=== PATIENT | male | born 1950 | race Caucasian/White ===

== ENCOUNTER 2017-01-12 08:02 | Day surgery (SDC) | payer MEDICARE ==
[2015-05-26 08:34] VITALS: BMI 22.8
--- NOTE | 2017-01-12 10:16 | CP.SDSHP ---
Same Day Surgery H & P - History Proposed Procedure: colonoscopy Pre-Op Diagnosis: rectal pain - Previous Medical/Surgical History Comments: BPH - Allergies Allergies: Allergies No Known Allergies Allergy (Verified 02/09/16 13:10) - Physical Exam Vital Signs: Vital Signs 01/12/17 08:29 Temperature 97 F L Pulse Rate 72 Respiratory 17 Rate Blood Pressure 141/65 O2 Sat by Pulse 98 Oximetry Mental Status: Alert & Oriented x3 Neuro: WNL Heart: WNL Lungs: WNL GI: WNL - {Optional Preform as Required} Abdomen: WNL - Impression Impression: rectal pain Pt. Evaluated Today:Candidate for Anesthesia & Procedure: Yes - Date & Time Date: 01/12/17 Time: 10:15 Short Stay Discharge - Short Stay Discharge Admitting Diagnosis/Reason for Visit: COLONIC POLYPS Disposition: HOME/ ROUTINE
[2017-01-12] MEDS ORDERED: Propofol 10 mg/ml Inj (20 ML) ONE (10:20)
[2017-01-12] MEDS ORDERED: Lactated Ringer's 1,000 ML IV ONE ×2 (10:20)
[2017-01-12 11:20] VITALS: TEMP 98.2
[2017-01-12 11:23] VITALS: O2SAT 100
[2017-01-12 12:41] VITALS: BP 135/67; PULSE 58; RESP 13
== END 2017-01-12 12:30 | disposition home or self-care (01) ==
LOC: C.ENDO 08:02
PROVIDERS: ATTEND Internal Medicine Gastroenterology
DX: K62.1 Rectal polyp (principal); K64.8 Other hemorrhoids; D12.0 Benign neoplasm of cecum
CPT/HCPCS: 45388; 88305; J2704; J7120

== ENCOUNTER 2018-02-21 10:06 | Emergency (ER) | payer MEDICARE ==
[2018-02-21 10:06] VITALS: BMI 23.6
--- NOTE | 2018-02-21 12:27 | C.PDOC ---
History Of Present Illness Patient complains of left cramping calf pain for one month. Pain is intermittent but has been more persistent the past few days. Patient does have history of limited movement secondary to chronic back pain and recent epidural last month. Denies any chest pain, SOB, numbness or weakness Time Seen by Provider: 02/21/18 11:06 Chief Complaint (Nursing): Lower Extremity Problem/Injury History Per: Patient History/Exam Limitations: no limitations Onset/Duration Of Symptoms: Days, Intermittent Episodes, Persistent, Other (one month ) Current Symptoms Are (Timing): Still Present Additional History Per: Patient Past Medical History Reviewed: Historical Data, Nursing Documentation, Vital Signs Vital Signs: Last Vital Signs Temp 98.7 F 02/21/18 13:15 Pulse 58 L 02/21/18 13:15 Resp 18 02/21/18 13:15 BP 155/79 H 02/21/18 13:15 Pulse Ox 98 02/21/18 16:30 - Medical History PMH: Arthritis, Back Problems, Benign Prostatic Hyperplasia, HTN Denies: Chronic Kidney Disease Surgical History: Back Surgery - [facility] Procedures ANESTH INJECT SYMP NERVE (10/30/13) ANESTH INJECT-SPIN CANAL (09/30/13) ENDOSC POLYPECTOMY OF LG INTEST (07/18/13) INJECT STEROID (10/30/13) LUMBOSAC SPINE X-RAY NEC (09/30/13) PERIPH NERVE DESTRUCTION (03/27/14) SPINAL CANAL INJECT NEC (09/30/13) SYMPATH NERVE INJECT NEC (10/30/13) Family History: States: Unknown Family Hx - Social History Hx Tobacco Use: No Hx Alcohol Use: No Hx Substance Use: No - Immunization History Hx Tetanus Toxoid Vaccination: Yes Hx Influenza Vaccination: Yes Hx Pneumococcal Vaccination: Yes Review Of Systems Cardiovascular: Negative for: Chest Pain Respiratory: Negative for: Shortness of Breath Musculoskeletal: Positive for: Other (left calf pain ) Neurological: Negative for: Weakness, Numbness Physical Exam - Physical Exam Appears: Non-toxic, No Acute Distress Skin: Normal Color, Warm, Dry Head: Atraumatic, Normacephalic Eye(s): bilateral: Normal Inspection Neck: Normal ROM Chest: Symmetrical Cardiovascular: Rhythm Regular, No Murmur Respiratory: Normal Breath Sounds, No Accessory Muscle Use, No Wheezing Extremity: Normal ROM, Calf Tenderness (left, on palpation ), Capillary Refill ( less than 2 seconds ), No Swelling, No Other (palpable cord ) Pulses: Left Dorsalis Pedis: Normal, Right Dorsalis Pedis: Normal Neurological/Psych: Oriented x3, Normal Speech ED Course And Treatment O2 Sat by Pulse Oximetry: 98 (on RA) Pulse Ox Interpretation: Normal Medical Decision Making Medical Decision Making: Impression: Left calf pain Plan: * Left doppler Progress: Doppler study shows acute DVT of left peroneal vein 1227 Spoke with case management Jami who will assist in coordinating Eliquis Medication starter pack obtained from pharmacy 1330 Dr Radha Lala was informed of patient's findings and is in ED to speak with patient. Patient agrees with plan for discharge and treatment of DVT with Eliquis. Disposition Counseled Patient/Family Regarding: Studies Performed, Diagnosis, Need For Followup, Rx Given - Disposition Referrals: Deedee Lala MD [Staff Provider] - Disposition: HOME/ ROUTINE Disposition Time: 13:35 Condition: STABLE Additional Instructions: Your doppler study shows you have DVT of left lower leg It is important that you follow up with your primary physician and take medication as prescribed Prescriptions: Apixaban [Eliquis] 2 tab PO BID 30 Days #74 tab Instructions: Deep Vein Thrombosis (Blood Clots in the Legs) (DC) Forms: [employer] (Kiswahili) - POA Present On Arrival: Deep Vein Thrombosis / PE - Clinical Impression Clinical Impression: Deep venous thrombosis of lower extremity - PA / SAMPLE CASE PORTER / Resident Statement MD/DO has reviewed & agrees with the documentation as recorded. (Yolanda Lala) - Scribe Statement The provider has reviewed the documentation as recorded by the Scribe (Yolanda Lala) All medical record entries made by the Scribe were at my direction and personally dictated by me. I have reviewed the chart and agree that the record accurately reflects my personal performance of the history, physical exam, medical decision making, and the department course for this patient. I have also personally directed, reviewed, and agree with the discharge instructions and disposition.
[2018-02-21 13:16] VITALS: BP 155/79; PULSE 58; RESP 18; TEMP 98.7
[2018-02-21 13:34] VITALS: O2SAT 98
--- NOTE | 2018-02-21 15:42 | VASCLAB ---
Date of service: 02/21/2018 PROCEDURE: Lower Extremity Venous Duplex Exam. HISTORY: Pain to left calf. PRIORS: None. TECHNIQUE: Bilateral common femoral, femoral, popliteal and posterior tibial, peroneal and great saphenous veins were evaluated. Flow was assessed with color Doppler, compressibility, assessment of phasic flow and augmentation response. Report prepared by KARINE Lockwood FINDINGS: RIGHT: 1. Common Femoral Vein: 1.1. Compressibility - Fully compressible: Thrombus - None : Flow - Phasic: Augmentation -Normal: Reflux - None. 2. Femoral Vein: 2.1. Compressibility - Fully compressible: Thrombus - None : Flow - Phasic: Augmentation -Normal: Reflux - None. 3. Popliteal Vein: 3.1. Compressibility - Fully compressible: Thrombus - None : Flow - Phasic: Augmentation -Normal: Reflux - None. 4. Posterior Tibial Vein: 4.1. Compressibility - Fully compressible: Thrombus - None: Flow - Phasic: Augmentation -Normal: Reflux - None. 5. Peroneal Vein: 5.1. Compressibility - Fully compressible: Thrombus - None: Flow - Phasic: Augmentation -Normal: Reflux - None. 6. Great Saphenous Vein: 6.1. Compressibility - Fully compressible: Thrombus - None: Flow - Phasic: Augmentation - Normal: Reflux - Mild. LEFT: 1. Common Femoral Vein: 1.1. Compressibility - Fully compressible: Thrombus - None: Flow - Phasic: Augmentation -Normal: Reflux - None. 2. Femoral Vein: 2.1. Compressibility - Fully compressible: Thrombus - None: Flow - Phasic: Augmentation -Normal: Reflux - None. 3. Popliteal Vein: 3.1. Compressibility - Fully compressible: Thrombus - None : Flow - Phasic: Augmentation -Normal: Reflux - None. 4. Posterior Tibial Vein: 4.1. Compressibility - Fully compressible: Thrombus - None: Flow - Phasic: Augmentation -Normal: Reflux - None. 5. Peroneal Vein: 5.1. Compressibility - Incompressible: Thrombus - Acute: Flow - Absent 6. Great Saphenous Vein: 6.1. Compressibility - Fully compressible: Thrombus - None: Flow - Phasic: Augmentation - Normal: Reflux - Mild. OTHER FINDINGS: Right: None significant. Left: None significant. IMPRESSION: Right: No evidence of deep or superficial vein thrombosis of the right lower extremity. Valvular incompetence noted of the great saphenous vein. Left: Acute deep vein thrombosis of the left peroneal veins. Valvular incompetence noted of the great saphenous vein.
== END 2018-02-21 13:35 | disposition home or self-care (01) ==
LOC: C.ER 10:06
DX: I82.492 Acute embolism and thrombosis of other specified deep vein of left lower extremity (principal)

== ENCOUNTER 2018-03-17 21:58 | Inpatient (IN) | payer MEDICARE ==
[2018-03-17 21:58] VITALS: BMI 23.6
[2018-03-17 22:39] LABS: EOS # 0.1 K/uL (0.0-0.7); EOS % 2.8 % (0.0-4.0); HEMOGLOBIN 7.4 g/dL (12.0-18.0); LYMPH # 1.1 K/uL (1.0-4.3); LYMPH % 22.7 % (20.0-40.0); MEAN CORPUSCULAR HEMOGLOBIN 22.8 pg (27.0-31.0); MEAN CORPUSCULAR HGB CONC 31.2 g/dL (33.0-37.0); MEAN PLATELET VOLUME 7.3 fL (7.2-11.7); MONO # 0.6 K/uL (0.0-0.8); NEUT # 2.8 K/uL (1.8-7.0); NEUT % 60.5 % (50.0-75.0); RBC 3.25 Mil/uL (4.40-5.90); RED CELL DISTRIBUTION WIDTH 19.5 % (11.5-14.5); WHITE BLOOD COUNT 4.6 K/uL (4.8-10.8)
[2018-03-17 22:49] LABS: INR 1.2; PROTHROMBIN TIME 13.1 SECONDS (9.7-12.2)
--- NOTE | 2018-03-17 22:58 | C.PDOC ---
History Of Present Illness 67 year old male, with history of HTN, presents to the emergency department with GI bleed, diffuse abdominal cramping and increasing progressive anemia. Patient had CT scan 2 days ago that showed focal soft tissue thickening at the level of the ileocecal valve. Was referred by Dr. Lala for further evaluation with colonoscopy. Denies any headache, chest pain, SOB, nausea, vomiting, or constipation. Patient Time Seen by Provider: 03/17/18 22:44 Chief Complaint (Nursing): GI Problem History Per: Patient History/Exam Limitations: no limitations Onset/Duration Of Symptoms: Days Current Symptoms Are (Timing): Still Present Past Medical History Reviewed: Historical Data, Nursing Documentation, Vital Signs Vital Signs: Last Vital Signs Temp 98.9 F 03/17/18 22:06 Pulse 86 03/17/18 22:06 Resp 18 03/17/18 22:06 BP 128/68 03/17/18 22:06 Pulse Ox 97 03/17/18 22:06 - Medical History PMH: Arthritis, Back Problems, Benign Prostatic Hyperplasia, HTN Denies: Anemia, Chronic Kidney Disease Surgical History: Back Surgery - [facility] Procedures ANESTH INJECT SYMP NERVE (10/30/13) ANESTH INJECT-SPIN CANAL (09/30/13) ENDOSC POLYPECTOMY OF LG INTEST (07/18/13) INJECT STEROID (10/30/13) LUMBOSAC SPINE X-RAY NEC (09/30/13) PERIPH NERVE DESTRUCTION (03/27/14) SPINAL CANAL INJECT NEC (09/30/13) SYMPATH NERVE INJECT NEC (10/30/13) Family History: States: No Known Family Hx - Social History Hx Tobacco Use: No Hx Alcohol Use: No Hx Substance Use: No - Immunization History Hx Tetanus Toxoid Vaccination: Yes Hx Influenza Vaccination: Yes Hx Pneumococcal Vaccination: Yes Review Of Systems Except As Marked, All Systems Reviewed And Found Negative. Constitutional: Negative for: Fever, Chills Cardiovascular: Negative for: Chest Pain Respiratory: Negative for: Shortness of Breath Gastrointestinal: Negative for: Nausea, Vomiting, Constipation Neurological: Negative for: Weakness, Numbness, Headache Physical Exam - Physical Exam Appears: Non-toxic, No Acute Distress Skin: Warm, Dry Head: Atraumatic, Normacephalic Eye(s): bilateral: Conjunctiva Pale Oral Mucosa: Moist Chest: Symmetrical Cardiovascular: Rhythm Regular, No Murmur Respiratory: Normal Breath Sounds, No Rales, No Rhonchi, No Wheezing Gastrointestinal/Abdominal: Other (Mild diffused discomfort of abdomen ) Rectal: Heme Positive (as per documentation) Extremity: Other (+1 pitting edema) Neurological/Psych: Oriented x3, Normal Speech, Other (AAOx3) ED Course And Treatment - Laboratory Results Result Diagrams: 03/17/18 22:35 03/17/18 22:35 O2 Sat by Pulse Oximetry: 97 (RA) Pulse Ox Interpretation: Normal Medical Decision Making Medical Decision Making: Impression: GI Bleed Plan: --Labs --Urinalysis spoke with Dr. Rene Lala, requesting admission for progressive anemia, GI bleed. Requesting consult with Dr. Murcia Discused with Dr. Crockett working with Dr. Murcia Disposition Counseled Patient/Family Regarding: Studies Performed, Diagnosis - Disposition Disposition: HOSPITALIZED Disposition Time: 22:58 Condition: GUARDED - POA Present On Arrival: None - Clinical Impression Clinical Impression: Abdominal pain, GI bleeding, Anemia - Scribe Statement The provider has reviewed the documentation as recorded by the Larisa Schroeder Provider Attestation: All medical record entries made by the Larisa were at my direction and personally dictated by me. I have reviewed the chart and agree that the record accurately reflects my personal performance of the history, physical exam, medical decision making, and the department course for this patient. I have also personally directed, reviewed, and agree with the discharge instructions and disposition. Decision To Admit - Pt Status Changed To: Hospital Disposition Of: Inpatient - Admit Certification Admit to Inpatient:: After my assessment, the patient will require hospitalization for at least two midnights. This is because of the severity of symptoms shown, intensity of services needed, and/or the medical risk in this patient being treated as an outpatient. - InPatient: Physician Admission Certification: I certify that this patient requires 2 or more midnights of care for the following reason:: severe anemia, possible colon ca, weight loss, decreased PO - . Bed Request Type: Telemetry Patient Diagnosis: Abdominal pain, GI bleeding, Anemia
[2018-03-17 23:03] LABS: ALB/GLOB RATIO 1.3 (1.0-2.1); ALBUMIN 3.7 g/dL (3.5-5.0); ALT/SGPT 25 U/L (21-72); AST/SGOT 24 U/L (17-59); BLOOD UREA NITROGEN 17 mg/dL (9-20); CALCIUM 8.4 mg/dl (8.6-10.4); GFR NON-AFRICAN AMERICAN > 60; LIPASE 141 U/L (23-300)
[2018-03-18 01:52] LABS: URINE BILIRUBIN NEGATIVE (NEGATIVE); URINE BLOOD 1+ (NEGATIVE); URINE CLARITY Clear (Clear); URINE COLOR Yellow (YELLOW); URINE GLUCOSE (UA) NORMAL (Normal); URINE LEUKOCYTE ESTERASE NEG Leu/uL (Negative); URINE PROTEIN NEGATIVE (NEGATIVE); URINE UROBILINOGEN NORMAL mg/dL (0.2-1.0)
[2018-03-18] MEDS ORDERED: DiphenhydrAMINE 50 mg/ml Inj IVP STA (02:25)
[2018-03-18 08:01] LABS: HEMOGLOBIN 7.5 g/dL (12.0-18.0); MEAN CELL VOLUME 72.8 fL (80.0-94.0); MEAN CORPUSCULAR HEMOGLOBIN 23.2 pg (27.0-31.0); MEAN CORPUSCULAR HGB CONC 31.9 g/dL (33.0-37.0); MEAN PLATELET VOLUME 6.8 fL (7.2-11.7); RBC 3.24 Mil/uL (4.40-5.90); RED CELL DISTRIBUTION WIDTH 19.4 % (11.5-14.5); WHITE BLOOD COUNT 4.5 K/uL (4.8-10.8)
[2018-03-18 08:05] LABS: INR 1.2; PROTHROMBIN TIME 12.8 SECONDS (9.7-12.2)
[2018-03-18 08:21] LABS: BLOOD UREA NITROGEN 13 mg/dL (9-20); CALCIUM 7.7 mg/dl (8.6-10.4); GFR NON-AFRICAN AMERICAN > 60
--- NOTE | 2018-03-18 11:55 | CP.PCM.CON ---
History of Present Illness - History of Present Illness History of Present Illness: CC: GI bleed HPI: 67 year old man admitted with symptomatic anemia and melena x several days, on Eliquis x 3 weeks, since diagnosed with DVT in right leg. No evidence of coagulopathy on labwork . CT scan shows suspicion of lesion in ileocecal area. Last colonoscopy was in 2017 and 2 benign polyps were removed. Review of Systems - Constitutional Constitutional: Weakness - EENT Eyes: absent: Change in Vision Nose/Mouth/Throat: absent: Nasal Discharge - Cardiovascular Cardiovascular: absent: Chest Pain, Dyspnea - Respiratory Respiratory: absent: Cough - Gastrointestinal Gastrointestinal: Abdominal Pain, Melena - Genitourinary Genitourinary: absent: Difficulty Urinating - Musculoskeletal Musculoskeletal: Back Pain - Integumentary Integumentary: absent: Jaundice - Neurological Neurological: Weakness. absent: Confusion - Psychiatric Psychiatric: absent: Depression - Hematologic/Lymphatic Hematologic: absent: Easy Bleeding Past Patient History - Infectious Disease Hx of Infectious Diseases: None - Past Medical History & Family History Past Medical History?: Yes - Past Social History Smoking Status: Never Smoked - CARDIAC Hx Cardiac Disorders: Yes Hx Hypertension: Yes - PULMONARY Hx Respiratory Disorders: No - NEUROLOGICAL Hx Neurological Disorder: No - HEENT Hx HEENT Problems: No - RENAL Hx Chronic Kidney Disease: No - ENDOCRINE/METABOLIC Hx Endocrine Disorders: No - HEMATOLOGICAL/ONCOLOGICAL Hx Blood Disorders: No Hx Anemia: No - INTEGUMENTARY Hx Dermatological Problems: No - MUSCULOSKELETAL/RHEUMATOLOGICAL Hx Musculoskeletal Disorders: Yes Hx Arthritis: Yes Hx Falls: No - GASTROINTESTINAL Hx Gastrointestinal Disorders: No - GENITOURINARY/GYNECOLOGICAL Hx Genitourinary Disorders: Yes - PSYCHIATRIC Hx Psychophysiologic Disorder: No Hx Substance Use: No - SURGICAL HISTORY Hx Surgeries: Yes Hx Herniorrhaphy: Yes - ANESTHESIA Hx Anesthesia: Yes Hx Anesthesia Reactions: No Hx Malignant Hyperthermia: No Meds Allergies/Adverse Reactions: Allergies Allergy/AdvReac Type Severity Reaction Status Date / Time No Known Allergies Allergy Verified 03/17/18 22:10 - Medications Medications: Current Medications Influenza Virus Vaccine (Fluzone Quad [id number]) 60 mcg IM .ONCE ONE Stop: 03/22/18 12:01 Pantoprazole Sodium (Protonix Inj) 40 mg IVP BID MARQUIS Stop: 03/21/18 18:01 Last Admin: 03/18/18 09:26 Dose: 40 mg Pneumococcal Polyvalent Vaccine (Pneumovax 23 Vaccine) 0.5 ml IM .ONCE ONE Stop: 03/20/18 12:01 Physical Exam - Constitutional Appears: Well, No Acute Distress - Head Exam Head Exam: ATRAUMATIC, NORMOCEPHALIC - Eye Exam Eye Exam: absent: Scleral icterus Additional comments: conjunctivae pale - ENT Exam ENT Exam: Mucous Membranes Moist - Neck Exam Neck exam: Positive for: Normal Inspection - Respiratory Exam Respiratory Exam: Clear to Auscultation Bilateral - Cardiovascular Exam Cardiovascular Exam: REGULAR RHYTHM - GI/Abdominal Exam GI & Abdominal Exam: Normal Bowel Sounds, Soft. absent: Distended, Mass, Tenderness - Rectal Exam Rectal Exam: Deferred - Extremities Exam Extremities exam: Positive for: normal inspection - Neurological Exam Neurological exam: Alert, Normal Gait, Oriented x3 - Psychiatric Exam Psychiatric exam: Normal Affect, Normal Mood - Skin Skin Exam: Normal Color Results - Vital Signs Recent Vital Signs: Last Vital Signs Temp 98.2 F 03/18/18 08:57 Pulse 70 03/18/18 08:57 Resp 20 03/18/18 08:57 BP 123/74 03/18/18 08:57 Pulse Ox 97 03/18/18 08:57 - Labs Result Diagrams: 03/18/18 07:52 03/18/18 07:52 Labs: Laboratory Results - last 24 hr 03/17/18 03/17/18 03/17/18 22:35 22:35 22:35 WBC 4.6 L RBC 3.25 L Hgb 7.4 L Hct 23.7 L MCV 73.0 L MCH 22.8 L MCHC 31.2 L RDW 19.5 H Plt Count 261 MPV 7.3 Neut % (Auto) 60.5 Lymph % (Auto) 22.7 [place] % (Auto) 13.0 H Eos % (Auto) 2.8 Baso % (Auto) 1.0 Neut # (Auto) 2.8 Lymph # (Auto) 1.1 [place] # (Auto) 0.6 Eos # (Auto) 0.1 Baso # (Auto) 0.0 PT 13.1 H INR 1.2 APTT 29 Sodium 140 Potassium 3.9 Chloride 106 Carbon Dioxide 24 Anion Gap 14 BUN 17 Creatinine 1.1 Est GFR ( Amer) > 60 Est GFR (Non-Af Amer) > 60 Random Glucose 118 H Calcium 8.4 L Total Bilirubin 0.3 AST 24 ALT 25 Alkaline Phosphatase 60 Total Protein 6.5 Albumin 3.7 Globulin 2.8 Albumin/Globulin Ratio 1.3 Lipase 141 Urine Color Urine Clarity Urine pH Ur Specific [place] Urine Protein Urine Glucose (UA) Urine Ketones Urine Blood Urine Nitrate Urine Bilirubin Urine Urobilinogen Ur Leukocyte Esterase Urine WBC (Auto) Urine RBC (Auto) Blood Type Antibody Screen 03/17/18 03/18/18 03/18/18 22:35 01:58 07:52 WBC 4.5 L RBC 3.24 L Hgb 7.5 L Hct 23.6 L MCV 72.8 L MCH 23.2 L MCHC 31.9 L RDW 19.4 H Plt Count 257 MPV 6.8 L Neut % (Auto) Lymph % (Auto) [place] % (Auto) Eos % (Auto) Baso % (Auto) Neut # (Auto) Lymph # (Auto) [place] # (Auto) Eos # (Auto) Baso # (Auto) PT INR APTT Sodium Potassium Chloride Carbon Dioxide Anion Gap BUN Creatinine Est GFR ( Amer) Est GFR (Non-Af Amer) Random Glucose Calcium Total Bilirubin AST ALT Alkaline Phosphatase Total Protein Albumin Globulin Albumin/Globulin Ratio Lipase Urine Color Yellow Urine Clarity Clear Urine pH 6.0 Ur Specific [place] 1.009 Urine Protein Negative Urine Glucose (UA) Normal Urine Ketones Negative Urine Blood 1+ H Urine Nitrate Negative Urine Bilirubin Negative Urine Urobilinogen Normal Ur Leukocyte Esterase Neg Urine WBC (Auto) 1 Urine RBC (Auto) 2 Blood Type A POSITIVE Antibody Screen Negative 03/18/18 03/18/18 07:52 07:52 WBC RBC Hgb Hct MCV MCH MCHC RDW Plt Count MPV Neut % (Auto) Lymph % (Auto) [place] % (Auto) Eos % (Auto) Baso % (Auto) Neut # (Auto) Lymph # (Auto) [place] # (Auto) Eos # (Auto) Baso # (Auto) PT 12.8 H INR 1.2 APTT Sodium 141 Potassium 3.9 Chloride 106 Carbon Dioxide 24 Anion Gap 14 BUN 13 Creatinine 0.9 Est GFR ( Amer) > 60 Est GFR (Non-Af Amer) > 60 Random Glucose 90 Calcium 7.7 L Total Bilirubin AST ALT Alkaline Phosphatase Total Protein Albumin Globulin Albumin/Globulin Ratio Lipase Urine Color Urine Clarity Urine pH Ur Specific [place] Urine Protein Urine Glucose (UA) Urine Ketones Urine Blood Urine Nitrate Urine Bilirubin Urine Urobilinogen Ur Leukocyte Esterase Urine WBC (Auto) Urine RBC (Auto) Blood Type Antibody Screen Assessment & Plan (1) Anemia Assessment and Plan: due to acute GI blood losses Status: Acute (2) GI bleeding Assessment and Plan: Melena/anemia. Eliquis discontinued 2 days ago Will need EGD and Colonoscopy to evaluate GI source of bleeding, and abnormality of Ileocecal valve on CT scan Discussed with patient and his daughter who is a physician Status: Acute (3) Deep venous thrombosis of lower extremity Assessment and Plan: Eliquis presently on hold due to active bleeding Status: Acute - Date & Time Date: 03/18/18 Time: 12:07
[2018-03-18] MEDS ORDERED: Bisacodyl 5mg EC Tab PO ONE (19:00)
[2018-03-18] MEDS: Peg-Electrolyte Oral Soln 4L (Golytely) PO ONE (19:50)
--- NOTE | 2018-03-19 00:02 | HP ---
HISTORY OF PRESENT ILLNESS: This is a 67-year-old male who was seen to the emergency room. The patient was having generalized fatigue and dizziness. The patient has a history of left lower leg DVT. The patient also has lumbar arthritis with radiculopathy. History of hypertension. The patient was found to have positive stool guaiac x3, and the patient's hemoglobin is dropping. The hemoglobin is 7.5. No history of chest pain or shortness of breath. REVIEW OF SYSTEMS: CARDIOVASCULAR SYSTEM: Negative for chest pain. RESPIRATORY SYSTEM: Negative for shortness of breath. GASTROINTESTINAL SYSTEM: Negative for abdominal pain. CENTRAL NERVOUS SYSTEM: No focal neurological complaints offered. No edema of the legs. No fever. No urinary complaints. PSYCHIATRIC: The patient is stable. All other systems are negative. PAST HISTORY: History of arthritis, back pain, BPH, hypertension. No history of renal disease. ALLERGIES: THE PATIENT IS ALLERGIC TO INTRAVENOUS CONTRAST DYE. SOCIAL HISTORY: Nonsmoker, nonalcoholic, no IVDA. MEDICATIONS: The patient's medications are reviewed by me. FAMILY HISTORY: No known inherited disease. PHYSICAL EXAMINATION: GENERAL: This is a 67-year-old male, alert and oriented, comfortable. VITAL SIGNS: Temperature 98.9, pulse 86, respirations 18, blood pressure 128/68 mmHg, and pulse oximetry is 97% on room air. HEENT: Normal. NECK: JVP is flat. Carotids, no bruits. LUNGS: No rales. No wheezing. HEART: S1 and S2 are normal. No gallop. No murmur. ABDOMEN: Soft and nontender. No organomegaly. CENTRAL NERVOUS SYSTEM: No focal neurological deficits. LABORATORY DATA: On admission, white cell count is 4.6, hemoglobin 7.4, normal platelets. BNP is within normal limits. IMPRESSION: 1. Gastrointestinal bleeding. 2. Severe anemia, symptomatic. 3. Polyarthritis. 4. Atherosclerotic heart disease. 5. Left leg deep venous thrombosis. PLAN: The patient will be admitted to the floor. We will get GI evaluation done. The patient may need blood transfusion. Other workup as needed. Sam Lala MD [facility] # [id number]
[2018-03-19 07:50] LABS: HEMOGLOBIN 8.7 g/dL (12.0-18.0); MEAN CELL VOLUME 73.4 fL (80.0-94.0); MEAN CORPUSCULAR HGB CONC 31.4 g/dL (33.0-37.0); MEAN PLATELET VOLUME 6.9 fL (7.2-11.7); RBC 3.8 Mil/uL (4.40-5.90); RED CELL DISTRIBUTION WIDTH 18.7 % (11.5-14.5); WHITE BLOOD COUNT 4.3 K/uL (4.8-10.8)
[2018-03-19] MEDS ORDERED: Peg-Electrolyte Oral Soln 4L (Golytely) PO ONE (08:00)
[2018-03-19 08:37] VITALS: O2SAT 100
[2018-03-19] MEDS: Peg-Electrolyte Oral Soln 4L (Golytely) PO ONE (09:13)
[2018-03-19 10:19] LABS: IRON 20 ug/dL (49-181)
[2018-03-19 10:28] LABS: % IRON SATURATION 5 (20-55); TOTAL IRON BINDING CAPACITY 426 ug/dL (250-450)
--- NOTE | 2018-03-19 12:08 | CP.PCM.PN ---
Subjective - Date & Time of Evaluation Date of Evaluation: 03/19/18 Time of Evaluation: 12:07 - Subjective Subjective: CONDITION SAME. ANEMIA IRON DEF. GI BLEED. Objective - Vital Signs/Intake and Output Vital Signs (last 24 hours): Temp Pulse Resp BP Pulse Ox 97.4 F L 81 20 127/72 100 03/19/18 08:37 03/19/18 08:52 03/19/18 08:37 03/19/18 08:37 03/19/18 08:37 - Medications Medications: Current Medications Influenza Virus Vaccine (Fluzone Quad [id number]) 60 mcg IM .ONCE ONE Stop: 03/22/18 12:01 Pantoprazole Sodium (Protonix Inj) 40 mg IVP BID MARQUIS Stop: 03/21/18 18:01 Last Admin: 03/19/18 09:12 Dose: 40 mg Pneumococcal Polyvalent Vaccine (Pneumovax 23 Vaccine) 0.5 ml IM .ONCE ONE Stop: 03/20/18 12:01 - Labs Labs: 03/19/18 07:46 03/18/18 07:52 PT 12.8 SECONDS (9.7-12.2) H 03/18/18 07:52 INR 1.2 03/18/18 07:52 APTT 29 SECONDS (21-34) 03/17/18 22:35 - Constitutional Appears: No Acute Distress, Chronically Ill - Eye Exam Eye Exam: PERRL - ENT Exam ENT Exam: Mucous Membranes Moist - Respiratory Exam Respiratory Exam: Clear to Ausculation Bilateral, NORMAL BREATHING PATTERN - Cardiovascular Exam Cardiovascular Exam: REGULAR RHYTHM, +S1, +S2 - GI/Abdominal Exam GI & Abdominal Exam: Soft, Normal Bowel Sounds - Extremities Exam Extremities Exam: Full ROM, Normal Capillary Refill, Normal Inspection. absent: Joint Swelling, Pedal Edema - Neurological Exam Neurological Exam: Alert, Awake, CN II-XII Intact, Normal Gait, Oriented x3 Assessment and Plan - Assessment and Plan (Free Text) Assessment: SAME. Plan: FOR COLONOSCOPY.
[2018-03-19] MEDS ORDERED: Lactated Ringer's 1,000 ML IV ONE (13:25)
[2018-03-19] MEDS ORDERED: Propofol 10 mg/ml Inj (20 ML) ONE ×2 (13:34→13:45)
[2018-03-19] MEDS ORDERED: Midazolam 2 MG/2 ML VIAL ONE (13:34)
--- NOTE | 2018-03-19 14:23 | CP.PCM.PN ---
Subjective - Date & Time of Evaluation Date of Evaluation: 03/19/18 Time of Evaluation: 14:21 - Subjective Subjective: EGD and Colonoscopy performed today- see reports for details. No sources of anemia were identified. rec: Capsule endoscopy as outpatient. May resume Eliquis if necessary, however would be preferable to defer until capsule endoscopy done. Discussed all above with patient's son and daughter Objective - Vital Signs/Intake and Output Vital Signs (last 24 hours): Temp Pulse Resp BP Pulse Ox 97.7 F 63 14 121/74 100 03/19/18 14:05 03/19/18 14:05 03/19/18 14:05 03/19/18 14:05 03/19/18 14:05 - Medications Medications: Current Medications Influenza Virus Vaccine (Fluzone Quad [id number]) 60 mcg IM .ONCE ONE Stop: 03/22/18 12:01 Pantoprazole Sodium (Protonix Inj) 40 mg IVP BID MARQUIS Stop: 03/21/18 18:01 Last Admin: 03/19/18 09:12 Dose: 40 mg Pneumococcal Polyvalent Vaccine (Pneumovax 23 Vaccine) 0.5 ml IM .ONCE ONE Stop: 03/20/18 12:01 - Labs Labs: 03/19/18 07:46 03/18/18 07:52 PT 12.8 SECONDS (9.7-12.2) H 03/18/18 07:52 INR 1.2 03/18/18 07:52 APTT 29 SECONDS (21-34) 03/17/18 22:35 Assessment and Plan (1) Anemia Status: Acute (2) GI bleeding Status: Acute (3) Deep venous thrombosis of lower extremity Status: Acute
[2018-03-19 15:52] VITALS: BP 160/82; PULSE 82; RESP 20; TEMP 97.6
--- NOTE | 2018-03-19 18:44 | CARD ---
APPROVED REPORT Date of service: 03/18/2018 EKG Measurement Heart [id number] <Conclusion> Normal sinus rhythm Normal ECG
--- NOTE | 2018-03-20 05:55 | CON ---
DATE: 03/19/2018 INITIAL CONSULTATION LOCATION: Bed #671B HISTORY OF PRESENT ILLNESS: Mr. Benton is a 67-year-old gentleman who was admitted to [facility] with GI bleed and anemia. The patient's chart, lab, imaging studies, and endoscopic reports were reviewed. Discussed with the patient and Dr. Lala. Mr. Benton is a 67-year-old gentleman who had a left leg deep venous thrombosis three to four weeks ago for which he was placed on anticoagulation tablet, Eliquis. The patient now was admitted with possible GI bleed and severe symptomatic anemia. The patient was found to have a hemoglobin of 7.4 with low MCV. The patient was symptomatic and was complaining generalized weakness and fatigue. The patient also underwent endoscopic evaluation per Dr. Crockett, and there was no significant bleeding in the GI tract. The patient's iron was low, and iron saturation was 5%. This was consistent with symptomatic iron-deficiency anemia secondary to blood loss. The patient denies any nausea or vomiting at this time. The patient denies any diarrhea. The patient denies any chest pain, shortness of breath, or palpitations. The patient denies any abdominal pain. The patient denies any knee symptoms, weight loss, fever, or fatigue. The patient denies any neurological symptoms. REVIEW OF SYSTEM: As stated above. PHYSICAL EXAMINATION: GENERAL: Revealed that the patient is ambulatory and wants to go home. VITAL SIGNS: Afebrile, pulse is 80, respirations 16 per minute. HEENT: Unremarkable. Anicteric. Pale sclerae present. NECK: Supple neck. No adenopathy. CHEST: Bilateral air. No rales. No rhonchi. ABDOMEN: Soft, nontender. Bowel sounds present. No palpable hepatosplenomegaly. EXTREMITIES: No pedal edema. No clubbing. No cyanosis. No palpable adenopathies. NEUROLOGICAL: Alert, awake, oriented, ambulatory and examination is nonfocal. ASSESSMENT AND PLAN: Mr. Benton is a 67-year-old gentleman who has a recent deep venous thrombosis and was taking anticoagulant tablet, Eliquis. The patient is now admitted for possible gastrointestinal bleed and severe symptomatic iron-deficiency anemia. Endoscopic evaluation was performed and there was no active gastrointestinal bleeding, and the patient is cleared for discharge by gastroenterology service. I recommend iron supplement to the patient. Oral versus parenteral intravenous iron treatment options were discussed in great detail with the patient and Dr. Lili Lala. Risks, benefits, and side effects of each option were discussed with the patient. The patient states that he would not take oral iron because he gets sick from oral iron. The patient gets constipation and stomach upset and refused to take oral iron tablets. The patient requested parenteral intravenous iron supplementation. Treatment with parenteral iron recommended the patient. The patient states that he is feeling better. He will come as an outpatient to get intravenous iron treatment. If the patient does not have any further gastrointestinal bleed, then I would recommend to resume the patient's anticoagulation as appropriate. The patient will also require to further evaluate the etiology of deep venous thrombosis. The patient stated that he will follow up with his primary care doctor, Dr. Lili Lala, tomorrow, and then they will decide as to what part of treatment would be needed. The patient will come to my office on for consideration of intravenous iron treatment. Lacey Law MD
[2018-03-20] MEDS ORDERED: Pneumococcal 23-Valent Vaccine IM ONE (12:00)
--- NOTE | 2018-03-21 14:39 | VASCLAB ---
Date of service: 03/19/2018 PROCEDURE: Left Lower Extremity Venous Duplex Exam. HISTORY: Pain in limb, r/O DVT. PRIORS: None. TECHNIQUE: Left common femoral, femoral, popliteal and posterior tibial, peroneal and great saphenous veins were evaluated. Flow was assessed with color Doppler, compressibility, assessment of phasic flow and augmentation response. Report prepared by KARINE Lockwood FINDINGS: LEFT: 1. Common Femoral Vein: 1.1. Compressibility - Fully compressible: Thrombus - None : Flow - Phasic: Augmentation -Normal: Reflux - None. 2. Femoral Vein: 2.1. Compressibility - Fully compressible: Thrombus - None: Flow - Phasic: Augmentation -Normal: Reflux - None. 3. Popliteal Vein: 3.1. Compressibility - Fully compressible: Thrombus - None: Flow - Phasic: Augmentation -Normal: Reflux - None. 4. Posterior Tibial Vein: 4.1. Compressibility - Fully compressible: Thrombus - None: Flow - Phasic: Augmentation -Normal: Reflux - None. 5. Peroneal Vein: 5.1. Compressibility - Fully compressible: Thrombus - None: Flow - Phasic: Augmentation -Normal: Reflux - None. 6. Great Saphenous Vein: 6.1. Compressibility - Fully compressible: Thrombus - None: Flow - Phasic: Augmentation - Normal: Reflux - Moderate 3.07s OTHER FINDINGS: Normal venous flow noted in the right common femoral vein. IMPRESSION: 1. No evidence of deep or superficial vein thrombosis of the left lower extremity with excellent venous flow. 2. Valvular incompetence noted of the left great saphenous vein.
[2018-03-22] MEDS ORDERED: Influenza Vaccine 60 MCG/0.5 ML SYR (3 yr & up) IM ONE (12:00)
== END 2018-03-19 21:00 | disposition home or self-care (01) | DRG 378 ==
LOC: C.ER 21:58 → C.9E 23:02 → C.6T 03-18 01:29
PROVIDERS: ADMIT Internal Medicine; ATTEND Internal Medicine
PROC: 0DJD8ZZ Inspection of Lower Intestinal Tract, Via Natural or Artificial Opening Endoscopic (ICD-10-PCS; principal; 2018-03-19 13:25)
PROC: 0DB48ZX Excision of Esophagogastric Junction, Via Natural or Artificial Opening Endoscopic, Diagnostic (ICD-10-PCS; 2018-03-19 13:25)
DX: K92.1 Melena (principal); I82.402 Acute embolism and thrombosis of unspecified deep veins of left lower extremity; D50.0 Iron deficiency anemia secondary to blood loss (chronic); Z79.01 Long term (current) use of anticoagulants; I10 Essential (primary) hypertension; M13.0 Polyarthritis, unspecified; I25.10 Atherosclerotic heart disease of native coronary artery without angina pectoris; Z23 Encounter for immunization; K64.0 First degree hemorrhoids; K44.9 Diaphragmatic hernia without obstruction or gangrene; K31.7 Polyp of stomach and duodenum

== ENCOUNTER 2018-06-15 15:44 | Inpatient (IN) | payer MEDICARE, OTHER ==
[2018-06-15 15:44] VITALS: BMI 23.6
[2018-06-15 16:43] LABS: BASO # 0.1 K/uL (0.0-0.2); BASO % 1.2 % (0.0-2.0); EOS # 0.2 K/uL (0.0-0.7); EOS % 2.4 % (0.0-4.0); HEMOGLOBIN 13.4 g/dL (12.0-18.0); LYMPH # 1.3 K/uL (1.0-4.3); LYMPH % 18.4 % (20.0-40.0); MEAN CELL VOLUME 88.4 fL (80.0-94.0); MEAN CORPUSCULAR HEMOGLOBIN 28.9 pg (27.0-31.0); MEAN CORPUSCULAR HGB CONC 32.7 g/dL (33.0-37.0); MEAN PLATELET VOLUME 7.8 fL (7.2-11.7); MONO # 0.8 K/uL (0.0-0.8); MONO % 11.1 % (0.0-10.0); NEUT # 4.9 K/uL (1.8-7.0); NEUT % 66.9 % (50.0-75.0); RBC 4.63 Mil/uL (4.40-5.90); RED CELL DISTRIBUTION WIDTH 23.3 % (11.5-14.5); WHITE BLOOD COUNT 7.3 K/uL (4.8-10.8)
[2018-06-15 16:50] LABS: INR 1.1; PROTHROMBIN TIME 12.2 SECONDS (9.7-12.2)
[2018-06-15 16:58] LABS: ALB/GLOB RATIO 1.4 (1.0-2.1); ALBUMIN 4.4 g/dL (3.5-5.0); ALT/SGPT 22 U/L (21-72); AST/SGOT 23 U/L (17-59); BLOOD UREA NITROGEN 24 mg/dL (9-20); CALCIUM 8.8 mg/dl (8.6-10.4); GFR NON-AFRICAN AMERICAN > 60
--- NOTE | 2018-06-15 17:07 | C.PDOC ---
History Of Present Illness 67 y/o male presents to the ED complaining of intermittent left-sided chest pain for 3-4 days. He also complains of a mild headache (not worst of life and not sudden in onset, without FND) as well as right leg swelling. Patient reports he was seen Dr. Rene Lala for the right lower leg swelling, had a negative doppler study, and was given Lasix. He now complains of persistent swelling and tried to see his hospital clerk Dr. Tavares today, but was referred to the ED. Patient notes he was previously on a blood thinner 2 months ago for a left lower extremity clot. Denies any recent fall or trauma. Denies any SOB, nausea, vomiting, diaph oresis, dizziness, abdominal pain, diarrhea, dark or bloody stools. No cough, fevers, chills, or night sweats. Patient states his last echo and stress test were 2-3 years ago. He notes PMHx of HTN, but states his medications were discontinued. <Jameson Tilley - Last Filed: 06/16/18 01:33> <Pati Koenig - Last Filed: 06/15/18 22:52> History Per: Patient History/Exam Limitations: no limitations Onset/Duration Of Symptoms: Days Current Symptoms Are (Timing): Still Present <Jameson Tilley - Last Filed: 06/16/18 01:33> Time Seen by Provider: 06/15/18 17:00 Chief Complaint (Nursing): Chest Pain Past Medical History Vital Signs: Last Vital Signs Temp 97.8 F 06/15/18 22:18 Pulse 78 06/15/18 22:18 Resp 16 06/15/18 22:18 BP 131/79 06/15/18 22:18 Pulse Ox 99 06/15/18 22:18 - [facility] Procedures ANESTH INJECT SYMP NERVE (10/30/13) ANESTH INJECT-SPIN CANAL (09/30/13) ENDOSC POLYPECTOMY OF LG INTEST (07/18/13) EXCISION OF ESOPHAGOGASTRIC JUNCTION, ENDO, DIAGN (03/17/18) INJECT STEROID (10/30/13) INSPECTION OF LOWER INTESTINAL TRACT, ENDO (03/17/18) LUMBOSAC SPINE X-RAY NEC (09/30/13) PERIPH NERVE DESTRUCTION (03/27/14) SPINAL CANAL INJECT NEC (09/30/13) SYMPATH NERVE INJECT NEC (10/30/13) <Pati Koenig - Last Filed: 06/15/18 22:52> Reviewed: Historical Data, Nursing Documentation, Vital Signs Vital Signs: Last Vital Signs Temp 98.7 F 06/15/18 15:55 Pulse 105 H 06/15/18 15:55 Resp 20 06/15/18 15:55 BP 120/67 06/15/18 15:55 Pulse Ox 97 06/15/18 15:55 - Medical History PMH: Arthritis, Back Problems, Benign Prostatic Hyperplasia, HTN Denies: Anemia, Chronic Kidney Disease Surgical History: Back Surgery - [facility] Procedures ANESTH INJECT SYMP NERVE (10/30/13) ANESTH INJECT-SPIN CANAL (09/30/13) ENDOSC POLYPECTOMY OF LG INTEST (07/18/13) EXCISION OF ESOPHAGOGASTRIC JUNCTION, ENDO, DIAGN (03/17/18) INJECT STEROID (10/30/13) INSPECTION OF LOWER INTESTINAL TRACT, ENDO (03/17/18) LUMBOSAC SPINE X-RAY NEC (09/30/13) PERIPH NERVE DESTRUCTION (03/27/14) SPINAL CANAL INJECT NEC (09/30/13) SYMPATH NERVE INJECT NEC (10/30/13) Family History: States: Unknown Family Hx - Social History Hx Tobacco Use: No Hx Alcohol Use: No Hx Substance Use: No - Immunization History Hx Tetanus Toxoid Vaccination: Yes Hx Influenza Vaccination: Yes Hx Pneumococcal Vaccination: Yes <Jameson Tilley - Last Filed: 06/16/18 01:33> Review Of Systems Constitutional: Negative for: Fever, Chills, Sweats Eyes: Negative for: Pain, Vision Change ENT: Negative for: Ear Pain, Ear Discharge Cardiovascular: Positive for: Chest Pain Respiratory: Negative for: Cough, Shortness of Breath, SOB with Excertion, Pleuritic Pain Gastrointestinal: Negative for: Nausea, Vomiting, Abdominal Pain, Diarrhea, Constipation, Melena, Hematochezia Genitourinary: Negative for: Dysuria, Frequency Musculoskeletal: Positive for: Leg Pain (and swelling) Skin: Negative for: Rash Neurological: Negative for: Weakness, Dizziness <Jameson Tilley - Last Filed: 06/16/18 01:33> Physical Exam - Physical Exam Appears: Non-toxic, No Acute Distress Skin: Warm, Dry Head: Normacephalic Eye(s): bilateral: Normal Inspection, PERRL, EOMI Oral Mucosa: Moist Neck: Trachea Midline, Supple, Other (No meningeal signs- negative kernig's and brudzinskis) Chest: Tenderness (reproducible pain on palpation of left chest wall) Cardiovascular: Rhythm Regular, No Friction Rub Respiratory: No Rales, No Rhonchi, No Wheezing Gastrointestinal/Abdominal: Soft, No Tenderness, No Distention Back: Normal Inspection Extremity: Normal ROM, No Tenderness Extremity: Bilateral: Normal Color And Temperature, Other (1+ edema to bilateral lower extremities) Pulses: Left Dorsalis Pedis: Normal, Right Dorsalis Pedis: Normal Neurological/Psych: Oriented x3, Normal Speech, Normal Cognition Gait: Steady <Jameson Tilley - Last Filed: 06/16/18 01:33> ED Course And Treatment - Laboratory Results Result Diagrams: 06/15/18 16:36 06/15/18 16:36 <Pati Koenig - Last Filed: 06/15/18 22:52> - Laboratory Results Result Diagrams: 06/15/18 16:36 06/15/18 16:36 O2 Sat by Pulse Oximetry: 97 (on RA) Pulse Ox Interpretation: Normal <Jameson Tilley - Last Filed: 06/16/18 01:33> Medical Decision Making Medical Decision Makin67 y/o M with PMHx of HTN and prior left DVT, presents with complaints of left- sided chest pain and headache and right leg pain/swelling. Patient reports having a negative doppler on the right lower extremity last week, now complaining of persistent swelling. Denies any family history of acute CA. Denies PMHx of diabetes or CA. Plan: --EKG --blood work with cardiac enzymes --chest x-ray EKG: NSR at 89 bpm, no STEMI Labs reviewed, trop negative. D-dimer 371. CT PE ordered pt in NAD, signed out to Dr. Koenig Pending CTPE. Pt agreeable to plan. <Jameson Tilley - Last Filed: 06/16/18 01:33> Disposition Discussed With : Sam Lala Comment: accepted the pt on his service and took ove rthe care at 10:53 PM Doctor Will See Patient In The: Hospital Counseled Patient/Family Regarding: Studies Performed, Diagnosis - Disposition Disposition Time: 19:00 - POA Present On Arrival: Poor Glycemic Control <Pati Koenig - Last Filed: 06/15/18 22:52> <Jameson Tilley - Last Filed: 06/16/18 01:33> - Disposition Disposition: HOSPITALIZED Condition: FAIR - Clinical Impression Clinical Impression: Chest pain - Scribe Statement The provider has reviewed the documentation as recorded by the Larisa Leach Provider Attestation: All medical record entries made by the Andrewibkolton were at my direction and p ersonally dictated by me. I have reviewed the chart and agree that the record accurately reflects my personal performance of the history, physical exam, medical decision making, and the department course for this patient. I have also personally directed, reviewed, and agree with the discharge instructions and disposition. <Jameson Tilley - Last Filed: 06/16/18 01:33> Decision To Admit - Pt Status Changed To: Hospital Disposition Of: Inpatient - Admit Certification Admit to Inpatient:: After my assessment, the patient will require hospitalization for at least two midnights. This is because of the severity of symptoms shown, intensity of services needed, and/or the medical risk in this patient being treated as an outpatient. - InPatient: Physician Admission Certification: I certify that this patient requires 2 or more midnights of care for the following reason:: After my assessment, the patient will require hospitalization for at least two midnights. This is because of the severity of symptoms shown, intensity of services needed, and/or the medical risk in this patient being treated as an outpatient. - . Bed Request Type: Telemetry Admitting Physician: Sam Lala <Pati Koenig - Last Filed: 06/15/18 22:52> <Jameson Tilley - Last Filed: 06/16/18 01:33> - . Patient Diagnosis: Chest pain
--- NOTE | 2018-06-15 17:11 | C.PDOC ---
Chief Complaint (Nursing): Chest Pain Past Medical History Vital Signs: Last Vital Signs Temp 98.7 F 06/15/18 15:55 Pulse 105 H 06/15/18 15:55 Resp 20 06/15/18 15:55 BP 120/67 06/15/18 15:55 Pulse Ox 97 06/15/18 15:55 - Medical History PMH: Arthritis, Back Problems, Benign Prostatic Hyperplasia, HTN Denies: Anemia, Chronic Kidney Disease Surgical History: Back Surgery - [facility] Procedures ANESTH INJECT SYMP NERVE (10/30/13) ANESTH INJECT-SPIN CANAL (09/30/13) ENDOSC POLYPECTOMY OF LG INTEST (07/18/13) EXCISION OF ESOPHAGOGASTRIC JUNCTION, ENDO, DIAGN (03/17/18) INJECT STEROID (10/30/13) INSPECTION OF LOWER INTESTINAL TRACT, ENDO (03/17/18) LUMBOSAC SPINE X-RAY NEC (09/30/13) PERIPH NERVE DESTRUCTION (03/27/14) SPINAL CANAL INJECT NEC (09/30/13) SYMPATH NERVE INJECT NEC (10/30/13) Family History: States: Unknown Family Hx - Social History Hx Tobacco Use: No Hx Alcohol Use: No Hx Substance Use: No - Immunization History Hx Tetanus Toxoid Vaccination: Yes Hx Influenza Vaccination: Yes Hx Pneumococcal Vaccination: Yes ED Course And Treatment - Laboratory Results Result Diagrams: 06/15/18 16:36 O2 Sat by Pulse Oximetry: 97 Disposition - Disposition
[2018-06-15] MEDS ORDERED: DiphenhydrAMINE 50 mg/ml Inj IVP STA (19:32)
--- NOTE | 2018-06-15 19:39 | RAD ---
HISTORY: cp COMPARISON: Chest x-ray performed 03/16/18 TECHNIQUE: Chest PA and lateral FINDINGS: LUNGS: Biapical pleural thickening. Mild left basilar atelectasis or infiltrate. Hyperinflation may be seen in setting of COPD. Increased lucencies especially within the bilateral upper lung evans compatible with underlying emphysema. Please note that chest x-ray has limited sensitivity for the detection of pulmonary masses. PLEURA: No significant pleural effusion identified. No definite pneumothorax . CARDIOVASCULAR: Mild cardiomegaly. Ectatic aorta. OSSEOUS STRUCTURES: Osseous demineralization. Degenerative changes. VISUALIZED UPPER ABDOMEN: Unremarkable. OTHER FINDINGS: None. IMPRESSION: Mild left basilar atelectasis or infiltrate. Biapical pleural thickening. COPD/emphysema.
[2018-06-15] MEDS ORDERED: DiphenhydrAMINE 50 mg/ml Inj ONE (19:40)
[2018-06-15] MEDS ORDERED: Iodixanol 320 MG/ML 100 ML BOTTLE IV ONE (20:13)
[2018-06-16 01:26] LABS: CK-MB 1.07 ng/mL (0.0-3.38)
[2018-06-16 01:32] VITALS: O2SAT 97
[2018-06-16 01:55] VITALS: RESP 20
[2018-06-16 09:01] VITALS: BP 169/75; TEMP 97.8
[2018-06-16 09:33] LABS: CK-MB 1.05 ng/mL (0.0-3.38)
[2018-06-16] MEDS ORDERED: Enoxaparin 40 mg Syringe SC SCH (10:00)
[2018-06-16] MEDS ORDERED: Multiple Vitamins Tab PO SCH (10:00)
[2018-06-16] MEDS ORDERED: Metoprolol Succinate 50 mg XL Tab PO SCH (11:00)
[2018-06-16 13:54] VITALS: PULSE 86
--- NOTE | 2018-06-16 14:04 | CT ---
Date of service: 06/15/2018 CTA chest PE protocol Indication: Preliminary impression was provided by [employer]. Technique: Contiguous axial images were obtained through the chest with intravenous contrast enhancement. Sagittal and coronal reconstructions were generated and reviewed. This CT exam was performed using 1 or more of the following dose reduction techniques: Automated exposure control, adjustment of the MAA and/or kV according to patient size, and/or use of iterative reconstruction technique. IV contrast: 100 mL Visipaque 320 IV Radiation dose (DLP): 476.54 MGy-cm. Comparison: Chest x-ray performed 06/15/18 Findings: Visualized portions of the inferior thyroid gland appear unremarkable. The mediastinal and hilar vascular structures appear within normal limits. The heart appears within normal limits of size. Prominent but sub cm mediastinal/prevascular adenopathy, nonspecific. Atherosclerotic calcifications of the aorta. No large central or segmental pulmonary embolus evident. No focal consolidation. No pleural effusion. No pneumothorax. Tiny left upper lobe calcified granuloma. Small hiatal hernia/distal esophageal wall thickening. Limited visualized portions of the upper abdomen: Too small to characterize hepatic hypodense lesions, statistically likely cysts or hemangiomas. Bilateral gynecomastia. Degenerative changes. Osseous demineralization. Impression: No large central or segmental pulmonary embolus identified. Tiny left upper lobe calcified granuloma. Prominent sub cm mediastinal/prevascular lymph nodes, nonspecific. Small hiatal hernia/distal esophageal wall thickening. Limited visualized portions of the upper abdomen: Too small to characterize hepatic hypodense lesions, statistically likely cysts or hemangiomas. Additional incidental findings as above. Preliminary impression was provided by [employer].
--- NOTE | 2018-06-16 14:36 | CP.PCM.PN ---
Subjective - Date & Time of Evaluation Date of Evaluation: 06/16/18 Time of Evaluation: 14:36 - Subjective Subjective: PATIENT SEEN AND EXAMINED AT THE BEDSIDE Objective - Vital Signs/Intake and Output Vital Signs (last 24 hours): Temp Pulse Resp BP Pulse Ox 97.8 F 86 20 169/75 H 97 06/16/18 08:00 06/16/18 13:54 06/16/18 08:00 06/16/18 08:00 06/16/18 08:00 - Medications Medications: Current Medications Diphenhydramine HCl (Benadryl) 25 mg PO Q6 [facility] Last Admin: 06/16/18 11:10 Dose: 25 mg Enoxaparin Sodium (Lovenox) 40 mg SC DAILY [facility] Last Admin: 06/16/18 10:00 Dose: 40 mg Metoprolol Succinate (Toprol Xl) 50 mg PO DAILY [facility] Last Admin: 06/16/18 11:10 Dose: 50 mg Multivitamins (Hexavitamin) 1 tab PO DAILY [facility] Last Admin: 06/16/18 10:00 Dose: 1 tab Pneumococcal Polyvalent Vaccine (Pneumovax 23 Vaccine) 0.5 ml IM .ONCE ONE Stop: 06/18/18 14:01 Tamsulosin HCl (Flomax) 0.4 mg PO DAILY [facility] Last Admin: 06/16/18 10:00 Dose: 0.4 mg - Labs Labs: 06/15/18 16:36 06/15/18 16:36 PT 12.2 SECONDS (9.7-12.2) 06/15/18 16:36 INR 1.1 06/15/18 16:36 APTT 30 SECONDS (21-34) 06/15/18 16:36 Assessment and Plan - Assessment and Plan (Free Text) Assessment: FOLLOW UP WITH DR Rene DELATORRE IN HIS OFFICE -----CALL FOR APPOINTMENT FOLLOW UP WITH DR Chris MURRAY IN HIS OFFICE ------CALL FOR APPOINTMENT CONTINUE HOME MEDICATION NEW PRESCRIPTION GIVEN TROPOL XL 50 MG BY MOUTH DAILY DISCONTINUE TROPOL XL [address] Rene DELATORRE ACTIVITY TOLERATED CALL DR Lili DELATORRE OR GO TO THE EMERGENCY ROOM IF SYMPTOM RETURN OR WORSENING
--- NOTE | 2018-06-16 19:13 | HP ---
HISTORY OF PRESENT ILLNESS: This is a 67-year-old male, came to the emergency room with a history of left-sided chest pain for the last three to four days. He complains of a mild headache also. The patient also complained of right leg swelling, for which venous Doppler is done, which was negative for the clot. No history of shortness of breath. No history of nausea, vomiting or abdominal pain. The patient complained of both knee pains. REVIEW OF SYSTEMS CARDIOVASCULAR SYSTEM: Positive for chest pain. RESPIRATORY SYSTEM: Negative for shortness of breath. GASTROINTESTINAL SYSTEM: Negative for nausea, vomiting or abdominal pain. CENTRAL NERVOUS SYSTEM: No focal neurological complaints offered. EXTREMITIES: Chronic arthritic pain present. Edema of the leg present. PAST MEDICAL HISTORY: History of hypertension and chronic arthritis. No myocardial infarction. FAMILY HISTORY: No known inherited disease. SOCIAL HISTORY: Nonsmoker, nonalcoholic. No IVDA. MEDICATIONS: The patient's medications are metoprolol ER 25 mg p.o. twice a day, ibuprofen p.r.n. ALLERGIES: THE PATIENT IS ALLERGIC TO IV DYE OR THE CONTRAST. PHYSICAL EXAMINATION GENERAL: This is a 67-year-old male, alert, oriented and comfortable. VITAL SIGNS: Temperature 97.8, pulse 78, respirations 16, blood pressure 131/79 mmHg, pulse ox is 99% on room air. HEENT: Normal. NECK: JVP is flat. Carotids, no bruits. LUNGS: No rales. No wheezing. HEART: S1 and S2 normal. No gallop. No murmur. ABDOMEN: Soft and nontender. No organomegaly. CENTRAL NERVOUS SYSTEM: No focal neurological deficits. EXTREMITIES: No edema of the legs. LABORATORY DATA: On admission, EKG is normal sinus rhythm with LVH. No acute ST-T changes. Chest x-ray consistent with COPD. The patient's troponins are negative. The patient's D-dimer is elevated, for which CT of the chest is done and report is awaiting. IMPRESSION: Chest pain. Elevated D-dimer. Rule out myocardial infarction. Hypertension. Chronic arthritis. PLAN: The patient will be admitted to the floor for observation. We will do workup to rule out myocardial infarction and continue medication. Other workup as needed. Sam Lala MD [facility] # [phone]
--- NOTE | 2018-06-18 12:23 | CARD ---
APPROVED REPORT Date of service: 06/15/2018 EKG Measurement Heart [id number] <Conclusion> Normal sinus rhythm with sinus arrhythmia Nonspecific ST abnormality Abnormal ECG
[2018-06-18] MEDS ORDERED: Pneumococcal 23-Valent Vaccine IM ONE (14:00)
--- NOTE | 2018-06-18 22:07 | CARD ---
APPROVED REPORT Date of service: 06/16/2018 EKG Measurement Heart [id number] <Conclusion> Normal sinus rhythm Possible Left atrial enlargement Borderline ECG
--- NOTE | 2018-06-18 22:16 | CARD ---
APPROVED REPORT Date of service: 06/16/2018 EKG Measurement Heart [id number] <Conclusion> Normal sinus rhythm Normal ECG
== END 2018-06-16 15:05 | disposition home or self-care (01) | DRG 313 ==
LOC: C.ER 15:44 → C.5S 22:51
PROVIDERS: ADMIT Internal Medicine Cardiovascular Disease; ATTEND Internal Medicine
DX: R07.89 Other chest pain (principal); I10 Essential (primary) hypertension; N40.0 Benign prostatic hyperplasia without lower urinary tract symptoms; R79.1 Abnormal coagulation profile; Z86.718 Personal history of other venous thrombosis and embolism; M25.562 Pain in left knee; M25.561 Pain in right knee

== ENCOUNTER 2018-06-25 07:40 | Outpatient (CLI) | payer MEDICARE, OTHER | END 2018-06-25 07:41 | disposition home or self-care (01) | LOC: C.LAB 07:40 | DX: D64.9 Anemia, unspecified (principal) ==

== ENCOUNTER 2018-07-04 11:12 | Outpatient (CLI) | payer MEDICARE, OTHER | END 2018-07-04 11:13 | disposition home or self-care (01) | LOC: C.CARD 11:12 | DX: R06.02 Shortness of breath (principal); R07.9 Chest pain, unspecified ==

== ENCOUNTER 2018-10-18 08:53 | Outpatient (CLI) | payer MEDICARE | END 2018-10-18 08:54 | disposition home or self-care (01) | LOC: C.RADH 08:53 | DX: R10.11 Right upper quadrant pain (principal) ==

== ENCOUNTER 2018-10-25 08:58 | Outpatient (CLI) | payer MEDICARE | END 2018-10-25 08:59 | disposition home or self-care (01) | LOC: C.LAB 08:58 | DX: R10.11 Right upper quadrant pain (principal); K76.0 Fatty (change of) liver, not elsewhere classified; I10 Essential (primary) hypertension; R06.02 Shortness of breath; R42 Dizziness and giddiness ==

== ENCOUNTER 2018-10-25 09:09 | Outpatient (CLI) | payer MEDICARE | END 2018-10-25 09:10 | disposition home or self-care (01) | LOC: C.USIC 09:09 | DX: R10.11 Right upper quadrant pain (principal); K76.0 Fatty (change of) liver, not elsewhere classified ==